=== PATIENT | male | born 1955 | race African-American/Black ===

== ENCOUNTER 2018-12-01 14:03 | Emergency (ER) | payer MEDICAID ==
[~2018-12-01] VITALS: Ht 177.8 cm; Wt 77.3 kg
[2018-12-01] MEDS ORDERED: ONDANSETRON HCL 4MG/2ML INJ IV STA (14:40)
[2018-12-01] MEDS ORDERED: SODIUM CHLORIDE 0.9% 1,000 ML IV ONE (14:40)
[2018-12-01] MEDS ORDERED: MORPHINE SULFATE 4 MG/ML CPJ (NOT FOR IM USE) IV STA (14:40)
[2018-12-01 17:22] VITALS: BP 128/80
== END 2018-12-01 17:27 | disposition home or self-care (01) ==
LOC: ER 16:29
DX: S52.501A Unspecified fracture of the lower end of right radius, initial encounter for closed fracture (principal); I10 Essential (primary) hypertension; W01.0XXA Fall on same level from slipping, tripping and stumbling without subsequent striking against object, initial encounter; Y93.89 Activity, other specified; Y92.018 Other place in single-family (private) house as the place of occurrence of the external cause
CPT/HCPCS: 29125; 73030; 73080; 73090; 73130; 96374; 96375; 99283; J2270; J2405; J7030

== ENCOUNTER 2020-05-06 19:17 | Emergency (ER) | payer MEDICARE, MEDICAID ==
[~2020-05-06] VITALS: Ht 182.9 cm; Wt 78.0 kg
[2020-05-06 19:30] VITALS: BP 131/70
== END 2020-05-06 20:20 | disposition home or self-care (01) ==
LOC: ER 19:17
DX: F19.10 Other psychoactive substance abuse, uncomplicated (principal); Z71.51 Drug abuse counseling and surveillance of drug abuser; M54.9 Dorsalgia, unspecified
CPT/HCPCS: 93005; 99283

== ENCOUNTER 2020-05-07 20:53 | Emergency (ER) | payer MEDICARE, MEDICAID ==
[~2020-05-07] VITALS: Ht 177.8 cm; Wt 82.0 kg
[2020-05-07 20:55] VITALS: BP 136/70
== END 2020-05-07 21:30 | disposition home or self-care (01) ==
LOC: ER 20:53
DX: F16.10 Hallucinogen abuse, uncomplicated (principal); I10 Essential (primary) hypertension; Z95.0 Presence of cardiac pacemaker
CPT/HCPCS: 93005; 99283